=== PATIENT | male | born 1945 | race Caucasian/White ===

== ENCOUNTER 2023-07-19 10:34 | Emergency (ER) | payer MEDICARE, OTHER, SELFPAY ==
[2023-07-19 10:36] VITALS: BP 136/73
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
[2023-07-19] MEDS: ATIVAN 0.5 MG PO (11:16)
[2023-07-19 11:32] LABS: % Basophils 0.5 % (0-2); % Eosinophils 1.2 % (0-6); % Immature Granulocytes 0.3 % (0-0.5); % Lymphocytes 21.3 % (20.5-51.1); % Monocytes 14.7 % (1.7-9.3); Absolute Eosinophils 0.1 10^3/uL (0-0.7); Absolute Lymphocytes 1.4 10^3/uL (1.2-3.4); Absolute Neutrophils 4.1 10^3/uL (1.4-6.5); Hematocrit 38.8 % (39.0-52.0); Hemoglobin 13.2 g/dL (13.0-18.0); Mean Corpuscular Hgb 32.8 pg (27.0-31.0); Mean Corpuscular Volume 96.3 fL (80.0-94.0); Mean Platelet Volume 9.6 fL (7.4-10.4); Nucleated Red Blood Cells % 0 % (-); Platelet Count 211 10^3/uL (130-400); Red Blood Cell Count 4.03 10^6/uL (4.70-6.10); Red Cell Dist. Width 12.6 % (11.5-14.5); White Blood Cell Count 6.5 10^3/uL (4.8-10.8)
[2023-07-19 11:56] LABS: ALT (SGPT) 23 U/L (0-50); AST (SGOT) 33 U/L (17-59); Alkaline Phosphatase 115 U/L (38-126); Blood Urea Nitrogen 23 mg/dl (9-20); Calcium 9.4 mg/dl (8.4-10.2); Carbon Dioxide 28 mmol/L (22-30); Chloride 105 mmol/L (98-107); Glucose 93 mg/dl (70-99); Potassium 4.2 mmol/L (3.5-5.1); Sodium 137 mmol/L (135-145); Total Bilirubin 1.2 mg/dl (0.2-1.3); Total Protein 6.8 g/dl (6.3-8.2); eGFR > 60.00
[2023-07-19 11:59] LABS: Troponin I < 0.012 ng/ml
[2023-07-19 12:36] VITALS: BP 131/76
== END 2023-07-19 13:47 | disposition home or self-care (01) ==
LOC: EMR 10:34
PROVIDERS: EMERGENCY PHYSICIAN Emergency Medicine; FAMILY PHYSICIAN Family Medicine
DX: R06.02 Shortness of breath (principal); F41.9 Anxiety disorder, unspecified; I10 Essential (primary) hypertension; E78.00 Pure hypercholesterolemia, unspecified; I48.91 Unspecified atrial fibrillation; J44.9 Chronic obstructive pulmonary disease, unspecified; Z79.01 Long term (current) use of anticoagulants; Z82.49 Family history of ischemic heart disease and other diseases of the circulatory system; Z86.73 Personal history of transient ischemic attack (TIA), and cerebral infarction without residual deficits
CPT/HCPCS: 99283; 71046; 80053; 84484; 85025; 93005

== ENCOUNTER 2024-02-22 11:30 | Emergency (ER) | payer MEDICARE, OTHER, SELFPAY ==
[2024-02-22] VITALS (11 sets, daily range): BP systolic 101–148; BP diastolic 60–86
--- NOTE | 2024-02-22 11:58 | ED.GENMED ---
History of Present Illness
<Orlando Barber PA-C - Last Filed: 02/22/24 17:01>
General
Chief Complaint: Fall
Time Seen by Provider: 02/22/24 11:53
History of Present Illness
History of Present Illness:
78-year-old male presents to the emergency department for evaluation of left hip pain, was attempting to load firewood when he fell onto his left side. Laid on the ground for approximately 30 minutes awaiting assistance to stand. History of left
hip replacement performed by Dr. Villagran at this hospital in 2020.
Past History
<Orlando Barber PA-C - Last Filed: 02/22/24 17:01>
Past History
ED Past Medical History: HTN, Hypercholesterolemia and Other (afib, MR)
ED Past Surgical History: Orthopedic
Social History
Tobacco: Non-smoker
Alcohol: Occasional
Drug: None
Personal:
Living: with family
Employment: Retired
Family History
Family History: Hypertension
Review of Systems
<Orlando Barber PA-C - Last Filed: 02/22/24 17:01>
Review of Systems
Allergies reviewed?: Yes
All Other Systems: ROS reviewed and negative except as documented in HPI and ROS
Phy Exam
<Orlando Barber PA-C - Last Filed: 02/22/24 17:01>
Physical Exam
Physical Exam:
GEN: Well appearing, NAD, WDWN
HEENT: Oral mucosa moist, no scleral icterus
Cardiac: Regular rate
Lung: No respiratory distress, no tachypnea
MSK: Shortening left lower extremity, no obvious external rotation, strong dorsalis pedis pulse
Skin: Good color, no pallor or jaundice, no rashes
Neuro: AO x3, moves all extremities freely
Psych: Calm, cooperative
Course
<Orlando Barber PA-C - Last Filed: 02/22/24 17:01>
Orders/Labs/Results
Orders:
Orders
02/22/24 11:31
Hip, Left 2-3 Views [CR Hip - LT w/wo Pel 2-3 Vw*] Urgent
Comment:
Reason For Exam: pain
Include a pelvis x-ray?: Yes
02/22/24 11:57
HYDROmorphone [Dilaudid] 0.5 mg IV NOW STA
02/22/24 12:06
Complete Blood Count/No Diff Urgent
Comprehensive Metabolic Panel Urgent
02/22/24 12:56
Propofol [Diprivan] 20 ml .ROUTE .STK-MED
02/22/24 13:22
CR Hip - LT without Pel 1 Vw Urgent
Comment:
Reason For Exam: post reduction
Abnormal Lab Results
02/22/24
12:06
RBC 3.77 L 10^6/uL
(4.70-6.10)
Hgb 12.5 L g/dL
(13.0-18.0)
Hct 36.8 L %
(39.0-52.0)
MCV 97.6 H fL
(80.0-94.0)
MCH 33.2 H pg
(27.0-31.0)
BUN 24 H mg/dl
(9-20)
Glucose 117 H mg/dl
(70-99)
02/22/24 12:06
02/22/24 12:06
Vital Signs
Initial and Last Documented VS:
Initial Vital Signs
Temp Pulse Resp BP Pulse Ox
98.1 F 84 18 133/86 98
02/22/24 11:31 02/22/24 11:31 02/22/24 11:31 02/22/24 11:31 02/22/24 11:31
Last Documented Vital Signs
Temp Pulse Resp BP Pulse Ox
98.6 F 88 20 134/78 99
02/22/24 13:58 02/22/24 13:58 02/22/24 13:58 02/22/24 13:58 02/22/24 13:58
<Dannie Mortensen, DO - Last Filed: 02/22/24 13:52>
Orders/Labs/Results
Orders:
Orders
02/22/24 11:31
Hip, Left 2-3 Views [CR Hip - LT w/wo Pel 2-3 Vw*] Urgent
Comment:
Reason For Exam: pain
Include a pelvis x-ray?: Yes
02/22/24 11:57
HYDROmorphone [Dilaudid] 0.5 mg IV NOW STA
02/22/24 12:06
Complete Blood Count/No Diff Urgent
Comprehensive Metabolic Panel Urgent
02/22/24 12:56
Propofol [Diprivan] 20 ml .ROUTE .STK-MED
02/22/24 13:22
CR Hip - LT without Pel 1 Vw Urgent
Comment:
Reason For Exam: post reduction
Abnormal Lab Results
02/22/24
12:06
RBC 3.77 L 10^6/uL
(4.70-6.10)
Hgb 12.5 L g/dL
(13.0-18.0)
Hct 36.8 L %
(39.0-52.0)
MCV 97.6 H fL
(80.0-94.0)
MCH 33.2 H pg
(27.0-31.0)
BUN 24 H mg/dl
(9-20)
Glucose 117 H mg/dl
(70-99)
02/22/24 12:06
02/22/24 12:06
Vital Signs
Initial and Last Documented VS:
Initial Vital Signs
Temp Pulse Resp BP Pulse Ox
98.1 F 84 18 133/86 98
02/22/24 11:31 02/22/24 11:31 02/22/24 11:31 02/22/24 11:31 02/22/24 11:31
Last Documented Vital Signs
Temp Pulse Resp BP Pulse Ox
98.6 F 88 20 134/78 99
02/22/24 13:58 02/22/24 13:58 02/22/24 13:58 02/22/24 13:58 02/22/24 13:58
Procedures
<Orlando Barber PA-C - Last Filed: 02/22/24 17:01>
Moderate Sedation
ASA Risk Score: Class III
Chart and allergies reviewed: Yes
Consent for anesthesia obtained: Yes
Time out completed (validating right patient & procedure): Yes
Moderate Sedation Start Time(when first medication is given): 13:18
History of difficult intubation: No
Airway free of obstruction: Yes
Patient has a gag reflex: Yes
Patient is able to open mouth: Yes
Patient has no dentures: Yes
Patient has no loose teeth: Yes
Medication administered by Provider during Moderate Sedation: IV Propofol (mg)
Total dose administered: 100
Time drug administered: 13:18
Moderate Sedation Procedure End Time: 13:28
Joint/Fracture Reduction
Left Hip:
Indication for procedure:: Left prosthetic hip dislocation
Procedure completed by: Orlando Barber PA-C, Dannie Mortensen DO
Consent form signed: Yes
Joint reduced: with anesthesia sedation
Injury was: closed
Further treatement: no treatment needed
Post reduction exam: stable
Capillary Refill: normal
Normal distal neurovascular exam?: Yes
<Orlando Barber PA-C - Last Filed: 02/22/24 17:01>
MDM/Problems Addressed
MDM/Problems Addressed:
Patient's hip was successfully reduced under conscious sedation, patient did require temporary BVM ventilation approximately 20 seconds after completion of procedure however recovered nicely with no other complications. Discussed supportive care
and need for outpatient orthopedic follow-up.
<Orlando Barber PA-C - Last Filed: 02/22/24 17:01>
*Critical Care Note
Total Time (30-74mins, 75-104mins- exclusive of procedures): Not Applicable
ED Attending Note
<Orlando Barber PA-C - Last Filed: 02/22/24 17:01>
-
Portions of this chart may have been created with voice recognition software.� Occasional wrong word or��sound alike� substitutions may have occurred due to the inherent limitations of voice recognition software.
<Dannie Mortensen, - Last Filed: 02/22/24 13:52>
ED Attending Note
Patient seen and examined by attending physician: Yes
I performed a history and physical exam of patient and discussed management with resident, I reviewed resident's note and agree with documented findings and plan of care.: Yes
ED Attending Note:
I have reviewed and agree with history and treatment plan by Nadir Barber. My exam revealed 78-year-old male with dislocated left hip. Reduced under sedation with Nadir Barber. Patient tolerated procedure well.
Discharge Plan
Departure
Patient Disposition: Home (Routine Discharge)
Date of Disposition: 02/22/24
Time of Disposition: 14:01
Patient with high blood pressure during this ER visit?: No
Discharge Problem:
Dislocation of internal left hip prosthesis
Instructions: Hip Dislocation (DC)
Prescriptions:
No Action
atorvastatin 80 MG tablet
80 mg PO DAILY
terazosin 5 MG capsule
10 mg PO QPM 0RF
furosemide 40 MG tablet
40 mg PO DAILY Qty: 0 0RF
lisinopril 20 MG tablet
20 mg PO DAILY Qty: 0 0RF
Rx Instructions:
hold systolic blood pressure <130 while taking pain med
Visbiome 112.5 billion cell Capsule
2 cap PO DAILY
Xarelto 20 mg tablet
20 mg PO QPM
acetaminophen 325 mg Tablet
650 mg PO Q6HPRN PRN (Reason: mild pain/ fever>100.5F) Qty: 10 0RF
cefepime 2 gram Recon Soln
2,000 mg IV Q12H Qty: 10 0RF
Vancomycin [Vancocin] 1250 MG
0.9% Sodium Chloride 250 ml [Nss] 250 ML
183.33 mls/hr IV Q12H
Ordered By: Estela Warren MD
Last Taken: Unknown
Protocol: None
Protocol Text:
DOSING PER PHARMACY
Please contact pharmacy with any questions.
lorazepam [Ativan] 0.5 mg tablet
0.5 mg PO BID PRN (Reason: anxiety) Qty: 10 0RF
Referrals:
Wagner Fairbanks MD [Family Provider] -
Christian Villagran MD [Active] -
Interventions
Interventions:
*Risk Screen - Suicide Last Done: 02/22/24 11:31
*General Assessment Last Done: 02/22/24 11:31
ED- Fall Risk Assessment Last Done: 02/22/24 12:07
*ED COVID-19 Vaccine History Last Done: 02/22/24 11:31
*Nursing Disposition Last Done: 02/22/24 14:19
ED-Musculoskeletal Assessment Last Done: 02/22/24 12:08
ED-Skin Assessment Last Done: 02/22/24 12:07
Discharge Date and Time
Discharge Date/Time: 02/22/24 14:20
Print Language: PASHTO
[2024-02-22] MEDS: DILAUDID 0.5 MG IV (12:03)
[2024-02-22 12:18] LABS: Hematocrit 36.8 % (39.0-52.0); Hemoglobin 12.5 g/dL (13.0-18.0); Mean Corpuscular Hgb 33.2 pg (27.0-31.0); Mean Corpuscular Volume 97.6 fL (80.0-94.0); Mean Platelet Volume 9.6 fL (7.4-10.4); Platelet Count 214 10^3/uL (130-400); Red Blood Cell Count 3.77 10^6/uL (4.70-6.10); Red Cell Dist. Width 13.1 % (11.5-14.5); White Blood Cell Count 9.1 10^3/uL (4.8-10.8)
[2024-02-22 12:34] LABS: ALT (SGPT) 22 U/L (0-50); AST (SGOT) 29 U/L (17-59); Albumin 4.2 g/dl (3.5-5.0); Alkaline Phosphatase 93 U/L (38-126); Blood Urea Nitrogen 24 mg/dl (9-20); Calcium 9.1 mg/dl (8.4-10.2); Carbon Dioxide 22 mmol/L (22-30); Chloride 105 mmol/L (98-107); Glucose 117 mg/dl (70-99); Potassium 4.3 mmol/L (3.5-5.1); Sodium 139 mmol/L (135-145); Total Protein 6.7 g/dl (6.3-8.2); eGFR > 60.00
== END 2024-02-22 14:20 | disposition home or self-care (01) ==
LOC: EMR 11:30
PROVIDERS: Physician Assistant; EMERGENCY PHYSICIAN Emergency Medicine; FAMILY PHYSICIAN Family Medicine
DX: T84.021A Dislocation of internal left hip prosthesis, initial encounter (principal); W19.XXXA Unspecified fall, initial encounter; E78.00 Pure hypercholesterolemia, unspecified; I10 Essential (primary) hypertension; I48.91 Unspecified atrial fibrillation
CPT/HCPCS: 27265; 99152; 96374; 99285; 73501; 73502; 80053; 85027

== ENCOUNTER 2024-03-15 07:36 | Outpatient (RCR) | payer MEDICARE, OTHER, SELFPAY | END 2024-03-15 23:59 | disposition home or self-care (01) | LOC: RPT 07:36 | PROVIDERS: ATTENDING PHYSICIAN Physician Assistant Medical; FAMILY PHYSICIAN Family Medicine | DX: S73.005D Unspecified dislocation of left hip, subsequent encounter (principal); Z96.642 Presence of left artificial hip joint; Z73.6 Limitation of activities due to disability | CPT/HCPCS: 97110; 97162 ==

== ENCOUNTER 2024-04-14 08:55 | Outpatient (RCR) | payer MEDICARE, OTHER, SELFPAY | END 2024-04-14 15:50 | disposition home or self-care (01) | LOC: RPT 08:55 | PROVIDERS: ATTENDING PHYSICIAN Physician Assistant Medical; FAMILY PHYSICIAN Family Medicine | DX: S73.005D Unspecified dislocation of left hip, subsequent encounter (principal); Z73.6 Limitation of activities due to disability; R26.2 Difficulty in walking, not elsewhere classified; M62.81 Muscle weakness (generalized); R26.89 Other abnormalities of gait and mobility; Z96.642 Presence of left artificial hip joint | CPT/HCPCS: 97110; 97530 ==

== ENCOUNTER 2024-05-04 07:49 | Inpatient (IN) | payer MEDICARE, OTHER, SELFPAY ==
[2024-04-14 10:50] LABS: Hematocrit 37.8 % (39.0-52.0); Hemoglobin 12.7 g/dL (13.0-18.0); Mean Corp Hgb Conc. 33.6 g/dL (33.0-37.0); Mean Corpuscular Hgb 32.6 pg (27.0-31.0); Mean Corpuscular Volume 97.2 fL (80.0-94.0); Mean Platelet Volume 9.8 fL (7.4-10.4); Platelet Count 203 10^3/uL (130-400); Red Blood Cell Count 3.89 10^6/uL (4.70-6.10); Red Cell Dist. Width 12.8 % (11.5-14.5); White Blood Cell Count 6.7 10^3/uL (4.8-10.8)
[2024-04-14 11:37] LABS: C-Reactive Protein < 5.00 mg/L (0.0-10.00)
[2024-04-14 11:39] LABS: ALT (SGPT) 24 U/L (0-50); AST (SGOT) 30 U/L (17-59); Albumin 4.2 g/dl (3.5-5.0); Alkaline Phosphatase 110 U/L (38-126); Blood Urea Nitrogen 23 mg/dl (9-20); Calcium 8.5 mg/dl (8.4-10.2); Carbon Dioxide 28 mmol/L (22-30); Chloride 104 mmol/L (98-107); Glucose 96 mg/dl (70-99); Potassium 4.7 mmol/L (3.5-5.1); Sodium 141 mmol/L (135-145); Total Bilirubin 1.3 mg/dl (0.2-1.3); Total Protein 6.5 g/dl (6.3-8.2)
[2024-04-14 11:44] LABS: Glycohemoglobin (HgbA1c) 5.7 % (4.0-5.6)
[2024-04-14 11:48] LABS: eGFR > 60.00
[2024-04-14 13:28] VITALS: BMI 34.3
[2024-04-14 14:24] LABS: Erythrocyte Sed Rate 27 mm/hour (0-20)
[2024-05-04] VITALS (18 sets, daily range): BP systolic 107–162; BP diastolic 66–86; PULSE 76; O2SAT 94–95
[2024-05-04] MEDS: TYLENOL 650 MG PO ×5 (08:28→23:35)
[2024-05-04] MEDS: CELEBREX 200 MG PO (08:28)
[2024-05-04] MEDS: NORMOSOL-R/PLASMALYTE-A 1000 IV ×2 (08:49→15:17)
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
[2024-05-04] MEDS: ROXICODONE 5 MG PO (13:08)
[2024-05-04] MEDS: ZESTRIL 20 MG PO (15:07)
[2024-05-04] MEDS: VIBRAMYCIN 100 MG PO ×2 (15:07→20:34)
[2024-05-04] MEDS: LASIX 80 MG PO (15:07)
[2024-05-04] MEDS: LIPITOR 80 MG PO (15:07)
[2024-05-04] MEDS: ANCEF 5 IV (16:18)
[2024-05-04] MEDS: XARELTO 10 MG PO (16:20)
[2024-05-04] MEDS: HYTRIN 10 MG PO (16:20)
[2024-05-04] MEDS: ROXICODONE 10 MG PO ×2 (16:33→20:35)
[2024-05-04] MEDS: DUONEB 3 ML INH (19:21)
[2024-05-04] MEDS: SENOKOT PO (20:32)
[2024-05-04] MEDS: DECADRON 4 MG IV (20:34)
[2024-05-04] MEDS: COLACE 100 MG PO (20:34)
[2024-05-04] MEDS: BACTROBAN 2% OINTMENT 1 APPLIC NASAL (20:47)
[2024-05-04] MEDS: NEURONTIN 300 MG PO (23:35)
[2024-05-05] MEDS: ANCEF 5 IV (02:20)
[2024-05-05] MEDS: TYLENOL 650 MG PO ×2 (03:25→07:43)
[2024-05-05 03:38] VITALS: BP 115/61
[2024-05-05] MEDS: ROXICODONE 10 MG PO (05:39)
[2024-05-05] MEDS: SENOKOT 17.2 MG PO (07:44)
[2024-05-05] MEDS: COLACE 100 MG PO (07:44)
[2024-05-05] MEDS: VIBRAMYCIN 100 MG PO (07:44)
[2024-05-05] MEDS: LIPITOR 80 MG PO (07:44)
[2024-05-05] MEDS: LASIX PO (07:44)
[2024-05-05] MEDS: ZESTRIL PO (07:45)
[2024-05-05] MEDS: BACTROBAN 2% OINTMENT 1 APPLIC NASAL (07:45)
[2024-05-05] MEDS: DECADRON 4 MG IV (07:45)
[2024-05-05] MEDS: STRIVERDI RESPIMAT 2 PUFF INH (08:03)
[2024-05-05] MEDS: DUONEB 3 ML INH (08:03)
[2024-05-05] MEDS: SPIRIVA RESPIMAT 2.5 MCG 2 PUFF INH (08:03)
[2024-05-05 09:30] VITALS: BP 114/59; BP 121/62; PULSE 128; PULSE 82; O2SAT 95
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
[2024-05-05 10:34] VITALS: BP 100/56; BP 105/56; BP 108/59; PULSE 80; PULSE 87; O2SAT 92
--- NOTE | 2024-05-05 10:43 | CM ---
Patient seen at bedside with
IMM explained & signed. In chart
IA completed
Dx: R BAYLEE
PMH: copd, anemia, PAD, TIA, [place]
Lives with in a multistory home, 2 steps to enter, flight to bed/bath
PLOF: Independent, ambulate with cane inside, walker outside
DME: cane, walker, CPAP, grabber, long handle shoe horn
PT/OT rec HH - Options reviewed prefers [facility]
Notified [facility] liaison, referral placed in [facility]
PCP: Wagner Fairbanks
Pharmacy: [address], [place]
PLAN: home with [facility]
to transport
--- NOTE | 2024-05-05 10:57 | VNURNOTE ---
Home Health Liaison met with patient and spouse at bedside to discuss [facility] nurse/therapy, visits, schedule and homebound status. They are agreeable and understand that visits at home will be 2-3 x per week to assess and teach medical management.
Both are aware that [facility] will contact them for start of care in 1-2 days after discharge from .
[facility] referral completed in [facility].
--- NOTE | 2024-05-05 11:11 | W.DS.TRANS ---
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
-
Discharge Instructions:
Discharge Diagnosis/Procedures R hip OA s/p R [facility] w/ Dr Villagran 05/04/24
Diet Other diet
Additional Diets Diabetic carb controlled x1 week for wound
healing/infection prevention
Activity With Walker,As tolerated
Additional Activity Should be supervised with all mobility given
history of falls and previous hip dislocation.
Driving Restrictions Not until seen by your Dr
Bathing Restrictions OK to Shower
Other Services PT,OT,VN
Wound Care Dressing to be removed 1 week post-surgery.
Specialty Instructions Weigh Daily
Instructions:
Stand-Alone Forms: Total Hip/Knee Replacement D/C
Changes to Home Medications: Yes
Discharge Medications:
DC Medications w/original date entered in [facility].
atorvastatin 80 mg tablet 80 mg PO DAILY High cholesterol 01/21/20
terazosin 5 mg capsule 10 mg (2 x 5 mg) PO QPM 03/14/21
rivaroxaban 20 mg tablet (Xarelto) 20 mg PO QPM Blood clot prevention/tx 04/20/22
albuterol sulfate 90 mcg/actuation aerosol inhaler 2 puff inhalation Q6H PRN wheeze 04/12/24
doxycycline monohydrate 100 mg tablet 100 mg PO BID Infection 04/12/24
umeclidinium 62.5 mcg-vilanterol 25 mcg/actuation powdr for inhalation (Anoro Ellipta) 1 inh inhalation DAILY 04/12/24
gabapentin 300 mg capsule 300 mg PO HS sleep/pain #10 caps 04/14/24
mupirocin 2 % topical ointment 1 applic topical BID infection prevention #1 tube 04/14/24
oxycodone 5 mg tablet 5 mg PO Q6H PRN 1 tab moderate pain, 2 tabs severe pain #30 tabs 04/14/24
acetaminophen 500 mg tablet (Tylenol Extra Strength) 1,000 mg (2 x 500 mg) PO Q6H #60 tabs 05/05/24
dexamethasone 4 mg tablet 4 mg PO BID Anti-inflammatory #5 tabs 05/05/24
diphenhydramine 25 mg-acetaminophen 500 mg tablet (Tylenol PM Extra Strength) 2 tab PO HS PRN sleep #0 tabs 05/05/24
docusate sodium 100 mg capsule 100 mg PO BID #30 caps 05/05/24
famotidine 20 mg tablet (Pepcid) 20 mg PO HS #30 tabs 05/05/24
furosemide 40 mg tablet 80 mg (2 x 40 mg) PO DAILY Fluid retention/Swelling #1 tab 05/05/24
lisinopril 20 mg tablet 20 mg PO DAILY Blood pressure #0 tabs 05/05/24
ondansetron HCl 4 mg tablet 4 mg PO Q6H PRN nausea and vomiting #30 tabs 05/05/24
potassium gluconate 550 mg (90 mg) tablet 550 mg PO DAILY #0 tabs 05/05/24
rivaroxaban 10 mg tablet (Xarelto) 10 mg PO QPM #2 tabs 05/05/24
sennosides 8.6 mg tablet (senna) 17.2 mg (2 x 8.6 mg) PO BID #30 tabs 05/05/24
Home Medication Changes
gabapentin 300 mg capsule 300 mg PO HS sleep/pain #10 caps 04/14/24
mupirocin 2 % topical ointment 1 applic topical BID infection prevention #1 tube 04/14/24
oxycodone 5 mg tablet 5 mg PO Q6H PRN 1 tab moderate pain, 2 tabs severe pain #30 tabs 04/14/24
acetaminophen 500 mg tablet (Tylenol Extra Strength) 1,000 mg (2 x 500 mg) PO Q6H #60 tabs 05/05/24
dexamethasone 4 mg tablet 4 mg PO BID Anti-inflammatory #5 tabs 05/05/24
docusate sodium 100 mg capsule 100 mg PO BID #30 caps 05/05/24
famotidine 20 mg tablet (Pepcid) 20 mg PO HS #30 tabs 05/05/24
ondansetron HCl 4 mg tablet 4 mg PO Q6H PRN nausea and vomiting #30 tabs 05/05/24
rivaroxaban 10 mg tablet (Xarelto) 10 mg PO QPM #2 tabs 05/05/24 - until POD 3
sennosides 8.6 mg tablet (senna) 17.2 mg (2 x 8.6 mg) PO BID #30 tabs 05/05/24
Pending Results: No
[2024-05-05 11:38] VITALS: BP 110/67
== END 2024-05-05 11:59 | disposition home health service (06) | DRG 470 ==
LOC: 2 SOUTH 07:49
PROVIDERS: ADMITTING PHYSICIAN Orthopaedic Surgery; FAMILY PHYSICIAN Family Medicine; REFERRING PHYSICIAN Internal Medicine Cardiovascular Disease
PROC: 0SR903A Replacement of Right Hip Joint with Ceramic Synthetic Substitute, Uncemented, Open Approach (ICD-10-PCS; 2024-05-04)
DX: M16.11 Unilateral primary osteoarthritis, right hip (principal); I82.401 Acute embolism and thrombosis of unspecified deep veins of right lower extremity; I48.19 Other persistent atrial fibrillation; I50.30 Unspecified diastolic (congestive) heart failure; Z68.35 Body mass index [BMI] 35.0-35.9, adult; E66.9 Obesity, unspecified; I11.0 Hypertensive heart disease with heart failure; Z79.01 Long term (current) use of anticoagulants; Z86.718 Personal history of other venous thrombosis and embolism; J44.9 Chronic obstructive pulmonary disease, unspecified; G47.33 Obstructive sleep apnea (adult) (pediatric); Z91.199 Patient's noncompliance with other medical treatment and regimen due to unspecified reason; D64.9 Anemia, unspecified; Z86.14 Personal history of Methicillin resistant Staphylococcus aureus infection; Z86.73 Personal history of transient ischemic attack (TIA), and cerebral infarction without residual deficits; Z87.891 Personal history of nicotine dependence; Z91.81 History of falling
CPT/HCPCS: 36415; 73502; 80053; 83036; 85027; 85652; 86140; 87070; 94640; 97110; 97116; 97163; 97167; 97530; 97535; C1713; C1776